=== PATIENT | female | born 1985 | race Caucasian/White ===

== ENCOUNTER 2019-04-03 12:58 | Emergency (ER) | payer SELFPAY ==
[2019-04-03] MEDS ORDERED: Ketorolac 60 MG/2 ML SDV IM ONE (13:29)
--- NOTE | 2019-04-03 13:29 | EDM.PDOC ---
ED HPI GENERAL MEDICAL PROBLEM - General Chief Complaint: Back Pain or Injury Stated Complaint: BACK PAIN Time Seen by Provider: 04/03/19 13:29 Source of Information: Reports: Patient History Limitations: Reports: No Limitations - History of Present Illness INITIAL COMMENTS - FREE TEXT/NARRATIVE: HISTORY AND PHYSICAL: History of present illness: Patient is a 33-year-old female presents to the ED with complaint of back pain. she states that she has been having back pain since January and has been seeing a chiropractor. Reports it was getting better until this morning she was sitting on the floor with her legs out and reach forward and felt a sharp pain in her back that radiated down her legs. She states she is currently having pain in her lower back but no longer having pain in her legs and no lower extremity numbness, tingling, saddle anesthesia, weakness or loss of bowel or bladder control. Denies fevers or chills. Review of systems: As per history of present illness and below otherwise all systems reviewed and negative. Past medical history: As per history of present illness and as reviewed below otherwise noncontributory. Surgical history: As per history of present illness and as reviewed below otherwise noncontributory. Social history: No reported history of drug or alcohol abuse. Family history: As per history of present illness and as reviewed below otherwise noncontributory. Physical exam: General: Patient sitting comfortably in no acute distress and nontoxic appearing HEENT: Atraumatic, normocephalic, pupils reactive, negative for conjunctival pallor or scleral icterus, mucous membranes moist, throat clear, neck supple, nontender, trachea midline. No meningeal signs. Lungs: Clear to auscultation, breath sounds equal bilaterally, chest nontender. Heart: S1S2, regular, negative for clicks, rubs, or overt murmur. Abdomen: Soft, nondistended, nontender. Negative for masses or hepatosplenomegaly. Negative for costovertebral tenderness. No rigidity, rebound , guarding. Pelvis: Stable nontender. Genitourinary: Deferred. Rectal: Deferred. Spine: Tender to palpation of the lumbar spinous processes with lumbar paraspinal tenderness bilaterally. Extremities: Atraumatic, negative for cords or calf pain. Neurovascular unremarkable. Neuro: Awake, alert, oriented. Cranial nerves II through XII unremarkable. Cerebellum unremarkable. Motor and sensory unremarkable throughout. Exam nonfocal. Notes: Diagnostics: Lumbar x-ray Therapeutics: 60mg Toradol IM Prescriptions: Tramadol (#12) Flexeril (#10) Impression: Back pain Plan: 1. Take tramadol and flexeril as needed as discussed. Do not take while driving as it may make you drowsy 2. Follow up with primary care provide 3. Return to ED as needed as discussed Definitive disposition and diagnosis as appropriate pending reevaluation and review of above. Lower Back Pain Score (Numeric/FACES): 5 - Related Data Allergies Allergy/AdvReac Type Severity Reaction Status Date / Time Penicillins Allergy Hives Verified 04/03/19 13:16 Home Meds: Home Meds Citalopram [Citalopram HBr] 20 mg PO DAILY 04/03/19 [History] Cyclobenzaprine [Flexeril] 10 mg PO BID PRN 5 Days #10 tab 04/03/19 [Rx] traMADol HCl [Tramadol HCl] 50 mg PO Q6H PRN #12 tablet 04/03/19 [Rx] Past Medical History Psychiatric History: Reports: Anxiety, Depression - Infectious Disease History Infectious Disease History: Reports: Chicken Pox - Past Surgical History GI Surgical History: Reports: Hernia, Inguinal Social & Family History - Family History Family Medical History: Noncontributory - Tobacco Use Smoking Status *Q: Never Smoker - Recreational Drug Use Recreational Drug Use: No ED ROS GENERAL - Review of Systems Review Of Systems: ROS reveals no pertinent complaints other than HPI. ED EXAM,LOWER BACK PAIN/INJURY - Physical Exam Exam: See Below (see dictation) Course - Vital Signs Last Recorded V/S: Last Vital Signs Temp 96.9 F 04/03/19 13:10 Pulse 64 04/03/19 13:10 Resp 18 04/03/19 13:10 BP 149/72 H 04/03/19 13:10 Pulse Ox 99 04/03/19 13:10 - Orders/Labs/Meds Meds: Medications Discontinued Medications Generic Name Dose Route Start Last Admin Trade Name Freq PRN Reason Stop Dose Admin Ketorolac Tromethamine 60 mg 04/03/19 13:29 04/03/19 13:56 Toradol IM 04/03/19 13:30 60 mg ONETIME ONE Administration Departure - Departure Time of Disposition: 14:54 Disposition: Home, Self-Care 01 Condition: Good Clinical Impression: Back pain Qualifiers: Back pain location: low back pain Chronicity: acute Back pain laterality: unspecified Sciatica presence: without sciatica Qualified Code(s): M54.5 - Low back pain - Discharge Information Prescriptions: Cyclobenzaprine [Flexeril] 10 mg PO BID PRN 5 Days #10 tab PRN Reason: Muscle Spasm traMADol HCl [Tramadol HCl] 50 mg PO Q6H PRN #12 tablet PRN Reason: Pain (Severe 7-10) Referrals: PCP,Unknown [Primary Care Provider] - Forms: ED Department Discharge Additional Instructions: The following information is given to patients seen in the emergency department who are being discharged to home. This information is to outline your options for follow-up care. We provide all patients seen in our emergency department with a follow-up referral. The need for follow-up, as well as the timing and circumstances, are variable depending upon the specifics of your emergency department visit. If you don't have a primary care physician on staff, we will provide you with a referral. We always advise you to contact your personal physician following an emergency department visit to inform them of the circumstance of the visit and for follow-up with them and/or the need for any referrals to a consulting specialist. The emergency department will also refer you to a specialist when appropriate. This referral assures that you have the opportunity for follow-up care with a specialist. All of these measure are taken in an effort to provide you with optimal care, which includes your follow-up. Under all circumstances we always encourage you to contact your private physician who remains a resource for coordinating your care. When calling for follow-up care, please make the office aware that this follow-up is from your recent emergency room visit. If for any reason you are refused follow-up, please contact the [facility] Emergency Department at and asked to speak to the emergency department charge nurse. [facility] [address] [place] [id number] [address] 1. Take tramadol and flexeril as needed as discussed. Do not take while driving as it may make you drowsy 2. Follow up with primary care provide 3. Return to ED as needed as discussed
--- NOTE | 2019-04-03 14:41 | CR ---
INDICATION: Pt w/lower back pain. Pt sts was putting furniture together this a.m, leaned forward and has had pain since. INDICATION: Low back pain. TECHNIQUE: Lumbar spine 3 view. COMPARISON: None FINDINGS: Bones: Minimal scoliotic curvature on the AP view. No fractures or significant bone lesions. Joints: Disc spaces and facets are unremarkable. Soft tissues: Unremarkable. IMPRESSION: 1. No acute bone abnormality. 2. Preservation of vertebral body heights and normal lumbar lordosis on the lateral projection. Dictated by Saad De Leon MD @ 04/03/2019 2:40:08 PM Dictated by: Saad De Leon MD @ 04/03/2019 14:40:13 (Electronically Signed)
== END 2019-04-03 15:09 | disposition home or self-care (01) ==
LOC: MW.ED 12:58
DX: M54.5 Low back pain (principal); F41.9 Anxiety disorder, unspecified; F32.9 Major depressive disorder, single episode, unspecified; Z79.899 Other long term (current) drug therapy; Z88.0 Allergy status to penicillin
CPT/HCPCS: 72100; 96372; 99283; J1885